=== PATIENT | male | born 1960 | race Caucasian/White ===

== ENCOUNTER 2018-05-07 10:36 | Emergency (ER) | payer OTHER ==
[2018-05-07 10:59] VITALS: Ht 170.2 cm
[2018-05-07 13:36] VITALS: BP 137/84
== END 2018-05-07 13:36 | disposition home or self-care (01) ==
LOC: ED 10:36
DX: M79.671 Pain in right foot (principal); F17.210 Nicotine dependence, cigarettes, uncomplicated; I10 Essential (primary) hypertension; E78.00 Pure hypercholesterolemia, unspecified; G89.29 Other chronic pain; Z88.0 Allergy status to penicillin; Z98.890 Other specified postprocedural states
CPT/HCPCS: Q0092

== ENCOUNTER 2018-05-21 18:55 | Inpatient (IN) | payer OTHER ==
[~2018-05-21] VITALS: Ht 170.2 cm; Wt 83.5 kg
[2018-05-21 21:12] LABS: BASOPHIL % 2.6 % (0-2); PLATELET COUNT 274 x10^3mcL (130-400); RED CELL DISTRIBUTION WIDTH 13.5 % (11.5-14.5)
[2018-05-21 21:17] LABS: CALCIUM 9.6 mg/dL (8.5-10.1); CHLORIDE SERUM 104 mmol/L (98-107); CREATININE SERUM 0.8 mg/dL (0.7-1.3); GFR1 > 60 mL/min; GLUCOSE SERUM 100 mg/dL (74-106); POTASSIUM SERUM 4.1 mmol/L (3.5-5.1); SODIUM SERUM 137 mmol/L (136-145)
[2018-05-21 21:22] LABS: ALBUMIN 3.7 g/dL (3.4-5.0); ALKALINE PHOSPHATASE 62 U/L (46-116); ALT/SGPT 26 U/L (16-63); AST/SGOT 17 U/L (15-37); BILIRUBIN TOTAL 0.2 mg/dL (0.20-1.00); TOTAL PROTEIN, SERUM 7.7 g/dL (6.4-8.2)
[2018-05-21] MEDS ORDERED: ASPIR 8181 MG PO (23:32)
[2018-05-21] MEDS ORDERED: MOT800 PO (23:33)
[2018-05-21] MEDS ORDERED: ATENOLOL25 MG PO (23:33)
[2018-05-21] MEDS ORDERED: GABAPENTIN100 M2 PO (23:34)
[2018-05-21] MEDS ORDERED: OXYCODONE HYDROC5 M2 PO (23:34)
[2018-05-21] MEDS ORDERED: PRA40 PO (23:35)
[2018-05-21] MEDS ORDERED: NOR10T PO (23:35)
[2018-05-22 00:50] LABS: MAGNESIUM 2.1 mg/dL (1.8-2.4); PHOSPHOROUS 3.6 mg/dL (2.5-4.9)
[2018-05-22 00:59] LABS: T3 TOTAL 1.23 ng/mL
[2018-05-22 01:03] LABS: FREE T4 0.97 ng/dL (0.76-1.46); FREE THYROXINE INDEX 2.7 ug/dL (1.4-4.5); T4(THYROXINE) 8.3 ug/dL (4.7-13.3)
[2018-05-22 01:12] VITALS: BP 114/65
[2018-05-22 01:16] LABS: microscopic required? NO
[2018-05-22 01:37] LABS: UA SPECIFIC GRAVITY 1.015 (1.005-1.035); urine erythrocyte NEGATIVE (NEGATIVE)
[2018-05-22 01:42] LABS: AMPHETAMINE QUAL UR NONE DETECTED (See below)
[2018-05-22 06:27] VITALS: BP 137/77
[2018-05-22 09:14] VITALS: BP 108/64
[2018-05-22 09:48] LABS: BASOPHIL % 0.6 % (0-2); PLATELET COUNT 252 x10^3mcL (130-400); RED CELL DISTRIBUTION WIDTH 13.8 % (11.5-14.5)
[2018-05-22 09:58] LABS: CALCIUM 8.6 mg/dL (8.5-10.1); CARBON DIOXIDE 28.7 mmol/L (21-32); CHLORIDE SERUM 107 mmol/L (98-107); CREATININE SERUM 0.8 mg/dL (0.7-1.3); GFR1 > 60 mL/min; GLUCOSE SERUM 118 mg/dL (74-106); POTASSIUM SERUM 4.2 mmol/L (3.5-5.1); SODIUM SERUM 142 mmol/L (136-145)
[2018-05-22 14:14] VITALS: BP 120/72
[2018-05-22 16:22] VITALS: BP 118/70
[2018-05-22 19:00] VITALS: BP 119/64
[2018-05-23 05:17] VITALS: BP 112/63
[2018-05-23 06:37] LABS: BASOPHIL % 0.8 % (0-2); PLATELET COUNT 249 x10^3mcL (130-400); RED CELL DISTRIBUTION WIDTH 13.8 % (11.5-14.5)
[2018-05-23 06:38] LABS: CALCIUM 8.1 mg/dL (8.5-10.1); CARBON DIOXIDE 21.8 mmol/L (21-32); CHLORIDE SERUM 111 mmol/L (98-107); CREATININE SERUM 0.6 mg/dL (0.7-1.3); GFR1 > 60 mL/min; GLUCOSE SERUM 100 mg/dL (74-106); POTASSIUM SERUM 3.9 mmol/L (3.5-5.1); SODIUM SERUM 146 mmol/L (136-145)
[2018-05-23 09:48] VITALS: BP 108/54
[2018-05-23 13:12] VITALS: BP 120/63
[2018-05-23 17:25] VITALS: BP 123/64
[2018-05-23 20:38] VITALS: BP 140/73
[2018-05-24 05:16] VITALS: BP 106/63
[2018-05-24 09:29] VITALS: BP 131/79
[2018-05-24 10:25] VITALS: BP 131/79
== END 2018-05-24 10:50 | disposition home or self-care (01) | DRG 282 ==
LOC: ED 18:55 → DU 05-22 00:08
PROVIDERS: Emergency Medicine; Family Medicine; Internal Medicine
DX: I21.4 Non-ST elevation (NSTEMI) myocardial infarction (principal); G89.29 Other chronic pain; I25.10 Atherosclerotic heart disease of native coronary artery without angina pectoris; M79.7 Fibromyalgia; I10 Essential (primary) hypertension; E78.5 Hyperlipidemia, unspecified; F12.10 Cannabis abuse, uncomplicated; Z98.1 Arthrodesis status; Z98.61 Coronary angioplasty status; Z79.82 Long term (current) use of aspirin; F17.210 Nicotine dependence, cigarettes, uncomplicated; Z79.1 Long term (current) use of non-steroidal anti-inflammatories (NSAID)
CPT/HCPCS: 83880; 84439; A9500; J1650; J1885; J2785; J7030; Q0092; Q9967

== ENCOUNTER 2018-09-30 12:13 | Inpatient (IN) | payer OTHER ==
[~2018-09-30] VITALS: Ht 170.2 cm; Wt 83.6 kg
[~2018-09-30 12:13] MED LIST: ASPIR 8181 MG PO; ATENOLOL25 MG PO; GABAPENTIN100 M2 PO; MOT800 PO; NOR10T PO; OXYCODONE HYDROC5 M2 PO; PRA40 PO
[2018-09-30 13:16] LABS: BASOPHIL % 1.2 % (0-2); PLATELET COUNT 327 x10^3mcL (130-400); RED CELL DISTRIBUTION WIDTH 13.1 % (11.5-14.5)
[2018-09-30 13:35] LABS: CALCIUM 9.6 mg/dL (8.5-10.1); CARBON DIOXIDE 20.7 mmol/L (21-32); CHLORIDE SERUM 101 mmol/L (98-107); GFR1 > 60 mL/min; GLUCOSE SERUM 117 mg/dL (74-106); POTASSIUM SERUM 3.8 mmol/L (3.5-5.1); SODIUM SERUM 138 mmol/L (136-145)
[2018-09-30 13:38] LABS: UA SPECIFIC GRAVITY 1.025 (1.005-1.035); microscopic required? YES; urine erythrocyte NEGATIVE (NEGATIVE)
[2018-09-30 13:40] LABS: ALBUMIN 3.7 g/dL (3.4-5.0); ALKALINE PHOSPHATASE 65 U/L (46-116); AST/SGOT 16 U/L (15-37); BILIRUBIN TOTAL 0.8 mg/dL (0.20-1.00); CHOLESTEROL 218 mg/dL (<200); CHOLESTEROL/HDL RATIO 5.6; HDL CHOLESTEROL 39 mg/dL (40-60); LIPASE 73 IU/L (73-393); TOTAL PROTEIN, SERUM 8.2 g/dL (6.4-8.2); TRIGLYCERIDES 115 mg/dL (<150)
[2018-09-30 14:42] LABS: FREE T4 1.12 ng/dL (0.76-1.46)
[2018-09-30 15:01] LABS: ALT/SGPT 26 U/L (16-63)
[2018-09-30] MEDS ORDERED: NORCO 10-325 T1 EACH (15:48)
[2018-09-30] MEDS ORDERED: OXYCODONE HYDROC5 M2 (15:48)
[2018-09-30] MEDS ORDERED: CHILDREN'S100 MG/52 (15:48)
[2018-09-30] MEDS ORDERED: GABAPENTIN100 M2 (15:48)
[2018-09-30 16:20] VITALS: BP 110/66
[2018-09-30 16:43] VITALS: Ht 170.2 cm; Wt 83.6 kg
[2018-09-30 18:21] VITALS: BP 122/70
[2018-09-30 20:25] VITALS: BP 112/59
[2018-09-30 20:43] LABS: T3 TOTAL 1.14 ng/mL
[2018-10-01 05:28] VITALS: BP 110/63
[2018-10-01 06:47] LABS: CALCIUM 9.2 mg/dL (8.5-10.1); CARBON DIOXIDE 22.5 mmol/L (21-32); CHLORIDE SERUM 106 mmol/L (98-107); CREATININE SERUM 0.8 mg/dL (0.7-1.3); GFR1 > 60 mL/min; GLUCOSE SERUM 144 mg/dL (74-106); PHOSPHOROUS 3.2 mg/dL (2.5-4.9); POTASSIUM SERUM 4.2 mmol/L (3.5-5.1); SODIUM SERUM 140 mmol/L (136-145)
[2018-10-01 06:53] LABS: PLATELET COUNT 291 x10^3mcL (130-400); RED CELL DISTRIBUTION WIDTH 13.5 % (11.5-14.5)
[2018-10-01 10:40] LABS: BAND NEUTROPHIL 8 % (0-10); BASOPHIL 0 % (0-2); MONOCYTE 3 % (0-7); SEGMENTED NEUTROPHILS 81 % (37-75)
[2018-10-01 10:41] LABS: PLATELET MORPHOLOGY PLATELETS NORMAL
== END 2018-10-01 08:24 | disposition left against medical advice (07) | DRG 607 ==
LOC: ED 12:13 → EDBEDREQ 15:13 → DU 15:14 → EDBEDREQSVC 15:27 → DU 16:30
PROVIDERS: Specialist; ADMIT Internal Medicine
DX: L50.0 Allergic urticaria (principal); I11.9 Hypertensive heart disease without heart failure; I25.10 Atherosclerotic heart disease of native coronary artery without angina pectoris; M54.9 Dorsalgia, unspecified; G89.29 Other chronic pain; E78.00 Pure hypercholesterolemia, unspecified; E78.5 Hyperlipidemia, unspecified; Z88.0 Allergy status to penicillin; Z95.5 Presence of coronary angioplasty implant and graft; Z96.89 Presence of other specified functional implants; Z53.29 Procedure and treatment not carried out because of patient's decision for other reasons
CPT/HCPCS: 83880; 84439; J1200; J1650; J1885; J2060; J2920; J2930; J3490; Q0092